=== PATIENT | female | born 1960 | race Caucasian/White ===

== ENCOUNTER 2020-02-03 16:04 | Outpatient (REF) | payer BC, SELFPAY ==
--- NOTE | 2020-02-03 16:11 | MM_ITS ---
EXAMINATION: MM SCREENING DIGITAL BREAST TOMOSYNTHESIS, BILATERAL CLINICAL INFORMATION: Screening. Asymptomatic. The lifetime risk of breast cancer based on the Tyrer-Cuzick Model is 8%. COMPARISON: Mammography: 11/28/2018, 11/02/2017, 10/25/2016 TECHNIQUE: Digital breast tomosynthesis is performed in both the craniocaudal and mediolateral oblique views along with computer-aided detection (CAD). Synthesized 2D images are generated from the tomosynthesis. Additional right CC view is provided. FINDINGS: There are scattered areas of fibroglandular density (ACR BI-RADS breast composition Category b). Breast tissue composition borders on predominantly fatty. Background fibroglandular and stromal densities are stable. No significant changes. No interval mass or architectural abnormality or abnormal calcifications. There is some digital processing artifact laterally anterior left breast on synthesized CC view. The axilla and skin contours are unremarkable. MM/MM tomosynthesis screening BI IMPRESSION: No significant changes from prior exams. ASSESSMENT: BI-RADS 2: Benign RECOMMENDATION: Routine annual mammography screening. This patient's information was entered into a reminder system with a target due date for their next mammogram.
== END 2020-02-03 16:05 | disposition home or self-care (01) ==
LOC: HO.MAMMO 16:04
PROVIDERS: PCP Internal Medicine; Visit Provider Internal Medicine
DX: Z12.31 Encounter for screening mammogram for malignant neoplasm of breast (principal)
CPT/HCPCS: 77063; 77067

== ENCOUNTER 2020-09-14 09:38 | Day surgery (SDC) | payer BC, SELFPAY ==
[2020-09-09 10:36] VITALS: BMI 34.7
--- NOTE | 2020-09-13 10:24 | P.CONAN_ITS ---
Documented by User: Anitha Edge 09/13/20 10:24 HPI - Anesthesia Eval Consult details Narrative: 60yo F for Colonoscopy [facility] Past Medical History Medical History Elevated cholesterol Surgical History Surgical History Hx of dilation and curettage Social History Social History Patient Tobacco Use Status: Never used Tobacco Use of substances other than those prescribed or required for medical reasons: No Are you DNR?: No Advance Directives: No Advance Directives Information Provided: Yes Meds Allergies Allergy/AdvReac Type Severity Reaction Status Date / Time No Known Allergies Allergy Verified 09/09/20 10:34 Home Medications Medication Instructions Recorded Confirmed Last Taken Type Lactobacillus acidophilus 10,000 mmu cells PO DAILY 09/09/20 09/09/20 Unknown History [Probiotic] ascorbic acid (vitamin C) [Vitamin 500 mg PO DAILY 09/09/20 09/09/20 Unknown History C] multivitamin 1 tab PO DAILY 09/09/20 09/09/20 Unknown History simvastatin 1 tab PO BEDTIME 09/09/20 09/09/20 Unknown History Exam Exam Date and Time: September 13, 2020 1024 Height,Weight and Vital Signs: Height 5 ft 2 in Weight 86.183 kg Assessment and Plan Assessment Anesthesia Assessment: Chart Reviewed Documented by User: Spencer Villagomez 09/14/20 10:21 [facility] Past Medical History Medical History Elevated cholesterol Surgical History Surgical History Hx of dilation and curettage Social History Social History Patient Tobacco Use Status: Never used Tobacco Use of substances other than those prescribed or required for medical reasons: No Are you DNR?: No Advance Directives: No Advance Directives Information Provided: Yes Meds Allergies Allergy/AdvReac Type Severity Reaction Status Date / Time No Known Allergies Allergy Verified 09/09/20 10:34 Home Medications Medication Instructions Recorded Confirmed Last Taken Type Lactobacillus acidophilus 10,000 mmu cells PO DAILY 09/09/20 09/09/20 Unknown History [Probiotic] ascorbic acid (vitamin C) [Vitamin 500 mg PO DAILY 09/09/20 09/09/20 Unknown History C] multivitamin 1 tab PO DAILY 09/09/20 09/09/20 Unknown History simvastatin 1 tab PO BEDTIME 09/09/20 09/09/20 Unknown History Exam Airway Mallampati Class: II TM Dist: >3cm Neck ROM: Full Loose/Missing/Broken Teeth: No Heart: rrr+[id number] Lungs: cta b/l Assessment and Plan Assessment Anesthesia Assessment: Anesthesia Plan Discussed, PAT Visit and Chart Reviewed Final Anesthetic Review NPO: Yes ASA Class: II Final Preanesthetic Review: No Changes in Pt Med Stat, Meds/Allgs Chart Reviewed, Consent Obtained/Reviewed and Anes Risks/Benef Reviewed Patient Risk: Low Procedure Risk: Low Assessment/Block/Sedation in SS: Assess/Block/Sedation-SS Anesthetic Plan Anesthetic Plan: MAC: and Agree w/ Assess. and Plan Disposition: Standard PACU
[2020-09-14 10:10] VITALS: BMI 33.8
[2020-09-14 10:22] VITALS: BP 150/88; PULSE 79; RESP 16; TEMP 36.8; O2SAT 96
[2020-09-14] MEDS: Lactated Ringers 1,000 ML 100 ML IVCONT (10:30)
--- NOTE | 2020-09-14 10:46 | MHC.SHP ---
Pre-Procedural Eval Section A Date of Service: 09/14/20 The patient is an INPATIENT: No Changes since office visit: No Cold of Flu in the past 2 weeks, No New Medical Problems, No Changes in Medication and No Patient answered all questions The History & Physical has been completed within 30 days and I have reviewed it.: Yes Section B Chief Complaint: screening Allergies: Allergies Allergy/AdvReac Type Severity Reaction Status Date / Time No Known Allergies Allergy Verified 09/09/20 10:34 Plan I have reviewed the history and physical and performed a pertinent physical examination on my patient. No changes have occurred unless specified.
--- NOTE | 2020-09-14 11:14 | P.BOP_ITS ---
Brief Operative Note Date of Service: 09/14/20 Post-op diagnosis: same (colon polyp) Surgeon: Josiah Troncoso Anesthesia: MAC Was an Loading Machine Operator Helper used for this Procedure?: No Estimated blood loss (mL): 2 Pathology: other (polyp 70) Condition: stable Disposition: PACU
[2020-09-14 11:15] VITALS: BP 150/88; PULSE 91; RESP 18; TEMP 36.2; O2SAT 98
--- NOTE | 2020-09-14 11:19 | MHC.SHP ---
Pre-Procedural Eval Section A Date of Service: 09/14/20 The patient is an INPATIENT: No The History & Physical has been completed within 30 days and I have reviewed it.: Yes Section B Chief Complaint: screening Allergies: Allergies Allergy/AdvReac Type Severity Reaction Status Date / Time No Known Allergies Allergy Verified 09/09/20 10:34 Plan I have reviewed the history and physical and performed a pertinent physical examination on my patient. No changes have occurred unless specified.
[2020-09-14 11:30] VITALS: BP 127/62; PULSE 78; RESP 18; TEMP 36.2; O2SAT 97
--- NOTE | 2020-09-14 19:00 | OP_ITS ---
SURGEON: Josiah Troncoso MD INDICATIONS: Colon cancer screening. PREOPERATIVE DIAGNOSIS: POSTOPERATIVE DIAGNOSIS: PROCEDURE PERFORMED: Colonoscopy to the terminal ileum with biopsy. ESTIMATED BLOOD LOSS: COMPLICATIONS: ANESTHESIA: ASSISTANTS: SPECIMENS: MEDICATIONS: Monitored anesthesia care. DESCRIPTION OF PROCEDURE: History and physical performed. The risks and benefits of the procedure were explained to the patient. Informed consent was obtained. The patient was placed in left lateral decubitus position. A digital rectal exam was performed and was found to be normal. The Olympus pediatric video colonoscope was introduced into the rectum and advanced to the cecum without difficulty. The cecum was identified by transillumination, palpation, and identification of ileocecal valve. Examination was performed and the scope was removed. She tolerated the procedure well and was taken to recovery area in stable condition. FINDINGS: The terminal ileum was normal. The visualized colonic mucosa was normal. The quality of the prep was good. There was a less than 5 mm sessile polyp at 70 cm. This was removed with biopsy forceps. There was some mild diverticulosis in the sigmoid. Retroflexed examination showed some small internal hemorrhoids. IMPRESSION: Colon polyp. RECOMMENDATION: Follow up the biopsy results. MD PIOTR Plata/YUKI / [id number]
== END 2020-09-14 11:55 | disposition home or self-care (01) ==
PROVIDERS: PCP Internal Medicine; Visit Provider Internal Medicine Gastroenterology
PROC: 0DJD8ZZ Inspection of Lower Intestinal Tract, Via Natural or Artificial Opening Endoscopic (ICD-10-PCS; CPT 45378; principal; 2020-09-14 11:00)
DX: Z12.11 Encounter for screening for malignant neoplasm of colon (principal); K63.5 Polyp of colon; K57.30 Diverticulosis of large intestine without perforation or abscess without bleeding; K64.8 Other hemorrhoids; E78.00 Pure hypercholesterolemia, unspecified; Z79.899 Other long term (current) drug therapy
CPT/HCPCS: 45380; 88305

== ENCOUNTER 2021-02-10 15:59 | Outpatient (REF) | payer BC, SELFPAY ==
--- NOTE | ~2021-02-10 | MM_ITS ---
EXAMINATION: MM SCREENING DIGITAL BREAST TOMOSYNTHESIS, BILATERAL CLINICAL INFORMATION: Screening. Asymptomatic. The lifetime risk of breast cancer based on the Tyrer-Cuzick Model is 47%. Additional annual screening with breast MRI may be of benefit in women with a Score of 20% or greater. COMPARISON: Mammography: February 03, 2020 and studies dating back to August 25, 2011 TECHNIQUE: Digital breast tomosynthesis is performed in both the craniocaudal and mediolateral oblique views along with computer-aided detection (CAD). Synthesized 2D images are generated from the tomosynthesis. FINDINGS: There are scattered areas of fibroglandular density (ACR BI-RADS breast composition Category b). There are no significant masses, abnormal calcifications, or other abnormalities. MM/MM tomosynthesis screening BI IMPRESSION: There are no significant changes from prior study. ASSESSMENT: BI-RADS 1: Negative RECOMMENDATION: Routine annual mammography screening. This patient's information was entered into a reminder system with a target due date for their next mammogram.
== END 2021-02-10 16:00 | disposition home or self-care (01) ==
LOC: HO.MAMMO 15:59
PROVIDERS: Visit Provider Internal Medicine
DX: Z12.31 Encounter for screening mammogram for malignant neoplasm of breast (principal)
CPT/HCPCS: 77063; 77067

== ENCOUNTER 2022-02-17 14:59 | Outpatient (REF) | payer BC, SELFPAY ==
--- NOTE | ~2022-02-17 | MM_ITS ---
EXAMINATION: MM SCREENING DIGITAL BREAST TOMOSYNTHESIS, BILATERAL CLINICAL INFORMATION: Screening. Asymptomatic. The lifetime risk of breast cancer based on the Tyrer-Cuzick Model is 9%. COMPARISON: Mammography: 02/10/2021, 02/03/2020, 11/28/2018 TECHNIQUE: Digital breast tomosynthesis is performed in both the craniocaudal and mediolateral oblique views along with computer-aided detection (CAD). Synthesized 2D images are generated from the tomosynthesis. FINDINGS: There are scattered areas of fibroglandular density (ACR BI-RADS breast composition Category b). There are no significant masses, abnormal calcifications, or other abnormalities. Parenchymal pattern is similar to prior studies. There is no developing density or architectural abnormality. The axilla and skin contours are unremarkable. No significant changes. MM/MM tomosynthesis screening BI IMPRESSION: No mammographic evidence of malignancy. ASSESSMENT: BI-RADS 1: Negative RECOMMENDATION: Routine annual mammography screening. This patient's information was entered into a reminder system with a target due date for their next mammogram.
== END 2022-02-17 15:00 | disposition home or self-care (01) ==
LOC: HO.MAMMO 14:59
PROVIDERS: Visit Provider Internal Medicine
DX: Z12.31 Encounter for screening mammogram for malignant neoplasm of breast (principal)
CPT/HCPCS: 77063; 77067

== ENCOUNTER 2023-02-21 14:09 | Outpatient (REF) | payer BC, SELFPAY ==
--- NOTE | ~2023-02-21 | MM_ITS ---
EXAMINATION: BONE DENSITOMETRY CLINICAL INDICATION: Menopause. COMPARISON: This is the patient's baseline examination. TECHNIQUE: Using a [employer] DXA System (software version: 13.1) manufactured by [employer], dual-energy x-ray absorptiometry was performed of the lumbar spine and left hip. The images are of good technical quality. Summary results are attached. FINDINGS: LEFT FEMUR, NECK: BMD 0.895 g/cm2, Z-score -0.2, T-score -1.0, normal. LEFT FEMUR, TOTAL: BMD 0.928 g/cm2, Z-score -0.2, T-score -0.6, normal. AP SPINE L1-L4: BMD 1.299 g/cm2, Z-score 1.5, T-score 1.0, normal. IDENTIFIED RISK FACTORS: Menopause. HISTORY OF FRACTURE: None listed. MEDICATIONS: Calcium, vitamin D. MM/XR DEXA axial skeleton IMPRESSION: 1. DIAGNOSIS: Normal bone density based on the lowest T-score value of -1.0 in the femoral neck applying World Health Organization criteria. 2. 10-YEAR FRACTURE RISK PREDICTION, FRAX: According to the guidelines, FRAX calculation should only be performed on patients in the osteopenia bone density category. Therefore, FRAX was not performed on this patient. 3. Treatment Recommendations: NOF guidelines recommend consideration for treatment in postmenopausal women and men age 50 and older presenting with the following: -A hip or vertebral (clinical or morphometric) fracture. -T-score less than or equal to -2.5 at the femoral neck or spine after appropriate evaluation to exclude secondary causes. -Low bone mass at the hip or spine and a 10-year fracture probability by FRAX of greater than or equal to 3% for hip fracture or greater than or equal to 20% for major osteoporotic fracture based on the [place] adapted WHO algorithm. 4. Other Recommendations: All treatment decisions require clinical judgment and consideration of individual patient factors, including patient preferences, comorbidities, previous drug use, risk factors not captured in the FRAX model (e.g. frailty, falls, vitamin D deficiency, increased bone turnover, interval significant decline in bone density) and possible under or overestimation of fracture risk by FRAX. FUTURE SCAN RECOMMENDATION: People with diagnosed cases of osteoporosis or at high risk for fracture should have regular bone mineral density tests. For patients eligible for Medicare, routine testing is allowed once every 2 years. The testing frequency can be increased to one year for patients who have rapidly progressing disease, those who are receiving or discontinuing medical therapy to restore bone mass, or have additional risk factors.
== END 2023-02-21 14:10 | disposition home or self-care (01) ==
LOC: HO.MAMMO 14:09
PROVIDERS: PCP Internal Medicine; Visit Provider Internal Medicine
DX: Z12.31 Encounter for screening mammogram for malignant neoplasm of breast (principal); Z13.820 Encounter for screening for osteoporosis; Z78.0 Asymptomatic menopausal state
CPT/HCPCS: 77063; 77067; 77080

== ENCOUNTER → 2023-02-21 14:30 | Outpatient (BNV) | payer BC, SELFPAY | PROVIDERS: PCP Internal Medicine; Visit Provider Radiology Diagnostic Radiology | DX: Z12.31 Encounter for screening mammogram for malignant neoplasm of breast (principal) | CPT/HCPCS: 77063; 77067 ==

== ENCOUNTER 2024-02-29 14:11 | Outpatient (REF) | payer BC, SELFPAY | END 2024-02-29 14:12 | disposition home or self-care (01) | LOC: HO.MAMMO 14:11 | PROVIDERS: PCP Internal Medicine; Referring Provider Obstetrics & Gynecology; Visit Provider Obstetrics & Gynecology | DX: Z12.31 Encounter for screening mammogram for malignant neoplasm of breast (principal) | CPT/HCPCS: 77063; 77067 ==

== ENCOUNTER → 2024-02-29 14:30 | Outpatient (BNV) | payer BC, SELFPAY | PROVIDERS: PCP Internal Medicine; Referring Provider Obstetrics & Gynecology; Visit Provider Internal Medicine | DX: Z12.31 Encounter for screening mammogram for malignant neoplasm of breast (principal) | CPT/HCPCS: 77063; 77067 ==

== ENCOUNTER 2025-03-03 13:55 | Outpatient (REF) | payer BC, SELFPAY ==
--- OUTSIDE RECORDS SUMMARY | 2025-03-03 17:45 | XMS_ITS | Patient Health Record ---
Author Organization [facility] Address [address] [place] [address] Care Team Providers Care Lacrosse Player Name Role Phone Ziggy (RETIRED) Damian HAIDER Primary Care Provider Unavailable Josiah Troncoso Jr Unavailable Allergies No Known Allergies Reason For Referral No Information Medications Medication SIG (Take, Route, Frequency, Duration) Notes Start Date End Date Status Vitamin C 500 MG Capsule as directed Orally Active Probiotic - Capsule as directed Orally Active MiraLax (colon prep) 8.3 ounce ((238) grams mixed with Gatorade or Crystal Light orally begin at 5:00 p.m. the day before the procedure; Duration: 1 day 09/03/2020 Active Multivitamin - Tablet 1 tablet Orally On a day/ w/iron Active Simvastatin 20 MG Tablet Oral; Duration: 90 Active Antioxidant - Capsule as directed Orally Active Immunizations Vaccine Route Administration Date Status Comme nts Influenza Unknown 11/04/2019 Administered Social History Tobacco Use: Social History Observation Description Date Details (start date - stop date) Never Smoker NA - NA Social History Drugs/Alcohol: Social Info Question Answer Notes Alcohol Screen Did you have a drink containing alcohol in the past year? 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 Problems Problem Type SNOMED Code ICD Code Onset Dates Problem Status W/U Status Risk Notes Problem Colon cancer screening (970916317) Colon cancer screening (Z12.11) Active confirmed Problem Pre-procedure evaluation check (022585564) Encounter for other preprocedural examination (Z01.818) Active confirmed Plan Of Treatment Future Test Test Name Order Date COLONOSCOPY 09/03/2020 Insurance Providers Payer Name Payer Address Payer Phone Subscriber Number Group Number Insured Name Patient Relationship to Insured Coverage Start Date Coverage End Date [facility] [employer] CLAIM[employer] [address] [place] [address] [id number] LIZZY POTTER Self - patient is the insured Medical (General) History Medical History History ICD Code Elevated cholesterol Surgical History Surgery Date(Month/Year) D&c
--- OUTSIDE RECORDS SUMMARY | 2025-03-03 17:45 | XMS_ITS | Patient Health Record ---
Author Organization [facility] Address [address] [place] [address] Care Team Providers Care Chainer Name Role Phone JAMES LOBO Primary Care Provider BARON BOUDREAUX Unavailable [phone] CAROLYNN NICKERSON Unavailable [phone] Allergies No Known Allergies Reason For Referral Reason 08/01/24 w appt New patient referral [facility] Diagnosis 1 Pain, joint, shoulde r, right (M25.511) Referral Organization [facility] Referring Provider First Name JAMES Referring Provider Last Name WE[place] Referring Provider Speciality Internal edicine Referred Organization [facility] rthopedics Referred Provider Specialty Orthopedic S urbanoery General Notes Cyndy SANTANA P Admin 10:11:42 AM > manually faxed appt request form for [facility] and also faxed some notes to [phone], Cyndy SANTANA P Admin 08/05/2024 11:00:01 AM > referral approved and faxed to [phone]>encounter closed Referral Priority Urgent Referral Appointment Date 08/29/2024 Referral Organization [facility]to Referring Provider First Name JAMES Referring Provider Last Name [place] Referring Provider Speciality Internal M edicine Referred Organization [facility] r[facility] Referred Provider Specialty Physical [facility] General Notes Cyndy SANTANA P Admin 04/2024 02:05:13 PM > per incoming document pt had appt on 08/29/24 for PT> >26v>CPT [id number]>referral approved and faxed to [phone]>encounter closed Referral Priority Routine Referral Appointment Date 08/29/2024 Medications Medication SIG (Take, Route, Frequency, Duration) Notes Start Date End Date Status Simvastatin 20 MG Tablet 1 tablet in the evening Orally Once a day Active amLODIPine Besylate 2.5 MG Tablet 1 tablet Orally Once a day Active Culturelle - Capsule as directed Orally Active Zolpidem Tartrate 5 MG Tablet 1 tab Orally at bedtime; Duration: 30 days 01/12/2025 Active Social History Tobacco Use: Social History Observation Description Date Details (start date - stop date) Never Smoker NA - NA Social History Tobacco Use: Social Info Question Answer Notes Smoking Are you a: never smoker Additional Details Category Social Info Options Details General 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2) Active confirmed Problem Localized, primary osteoarthritis of the shoulder region (971405854) Primary osteoarthritis of right shoulder (M19.011) Active confirmed Vital Signs Blood pressure diastolic 76 mm Hg 09/16/2024 Height 62 in 09/16/2024 Blood pressure systolic 126 mm Hg 09/16/2024 Weight 000 lbs 06/04/2024 patient states I'm not stopping here when we approached the scale for a weight.- 06/04/24 BMI 000 kg/m2 06/04/2024 patient states I'm not stopping here when we approached the scale for a weight.- 06/04/24 Encounters Encounter Location Date Provider Diagnosis [facility] [address] [place] [address] 06/04/2024 JAMES LOBO Acute pain of right shoulder M25.511 and Essential (primary) hypertension I10 [facility] [address] [place] [address] 03/17/2024 [facility] Essential (primary) hypertension I10 and Primary insomnia F51.01 [facility] [address], [place] [id number] 04/14/2024 [facility] COVID 079.[address] [address] 09/16/2024 [facility] Encounter for genera l adult medical examination with abnormal findings Z00.01 ; Essential (primary) hypertension I10 ; Mixed hyperlipidemia E78.2 ; Primary insomnia F51.01 and Primary osteoarthritis of right shoulder M19.[address] [address] 08/03/2024 CAROLYNN KRISHAN Acute pain of right shoulder M25.[address] [address] 10/14/2024 BARON BOUDREAUX Primary insomnia F51 .[address] [address] 09/16/[address] [address] 09/08/2024 [facility] Encounter for genera l adult medical examination without abnormal findings Z00.00 ; Mixed hyperlipidemia E78.2 and Essential (primary) hypertension I10 [address] [address] 08/13/2024 [facility] Primary insomnia F51 .[address] [address] 08/05/2024 [facility] [address] [address] 08/03/[address] [address] 06/16/2024 [facility] Primary insomnia F51 .[address] [address] 05/30/[address] [address] 05/13/[address] [address] 04/08/2024 [facility] Mixed hyperlipidemia E78.[address] [place] [address] 04/07/2024 [facility] Primary insomnia F51 .[address] [place] [address] 01/08/2025 [facility] [address] [place] [address], [place] [address] 01/07/[address] [place] [address] 07/31/2024 [facility] Pain, joint, shoulde r, right M25.[address] [place] [address] 07/31/[address] [place] [address] 04/15/[address] [place] [address] 04/14/[address] [place] [address] 04/11/2024 [facility] Gallbladder polyp K8 2.[address] [place] [address] 01/12/2025 [facility] Primary insomnia F51 .[address] [place] [address] 11/12/2024 [facility] Primary insomnia F51 .01 Assessments Encounter Date Diagnosis (ICD Code) Assessment Notes Treatment Notes Treatment Clinical Notes Section Notes 04/14/2024 COVID (ICD9-CM - 079.89) 1. COVID: We will treat with Paxlovid. Dosing concerns and possible side effects were reviewed. Patient will isolate at home until afebrile x 24 hours and clearly imrpving x 24 hours - and then if feeling improved may leave the home wearing a mask for 5 days thereafter. Patient will call in the interim if any concerns arise Patient will hold simvastatin 07/31/2024 Pain, joint, shoulder, right (ICD-10 - M25.511) 08/03/2024 Acute pain of right shoulder (ICD-10 - M25.511) She called out of frustration regarding her continued right shoulder pain. It is severe at times and prevents her from functioning, dressing, showering. She relates this to an injury that happened about 5 years ago, but the pain is much worse. She had a temporary response to a steroid injection 2 months ago, but the pain is back and worse . She is concerned that she has not heard back about a referral to Ortho. In reviewing the record, I advised her that her referral was sent to [facility] and she should be hearing back from them shortly about an appointment. They have her notes, so she can call them as well. In the meantime, she has not yet tried an NSAID, so she will start on OTC ibuprofen. I offered a prescription NSAID, but she will try this first. Acetaminophen has not helped. 09/16/2024 Essential (primary) hypertension (ICD-10 - I10) 1. Routine healthcare maintenance: Colonoscopy is due in 2030. Mammogram was done in February. Fasting blood work is up-to-date 2. Hypertension: Well-controlled on present amlodipine. No changes made today 3. Hyperlipidemia: Stable on simvastatin. Will continue same 4. Insomnia: Controlled on zolpidem. Will maintain same 5. Osteoarthritis in the right shoulder: Will observe response to PT and recent repeat injection. Plan is for an MRI through orthopedics if not better. Will await further recommendations 09/16/2024 Encounter for general adult medical examination with abnormal findings (ICD-10 - Z00.01) 1. Routine healthcare maintenance: Colonoscopy is due in 2030. Mammogram was done in February. Fasting blood work is up-to-date 2. Hypertension: Well-controlled on present amlodipine. No changes made today 3. Hyperlipidemia: Stable on simvastatin. Will continue same 4. Insomnia: Controlled on zolpidem. Will maintain same 5. Osteoarthritis in the right shoulder: Will observe response to PT and recent repeat injection. Plan is for an MRI through orthopedics if not better. Will await further recommendations 01/12/2025 Primary insomnia (ICD-10 - F51.01) 11/12/2024 Primary insomnia (ICD-10 - F51.01) 10/14/2024 Primary insomnia (ICD-10 - F51.01) 09/08/2024 Encounter for general adult medical examination without abnormal findings (ICD-10 - Z00.00) 06/04/2024 Acute pain of right shoulder (ICD-10 - M25.511) 1. Right shoulder pain: Consistent with rotator cuff tendinitis. Cortisone shot given today. Reviewed range of motion exercises. She will let me know if she is not improving with this intervention. 2. Hypertension: Mildly elevated today but in pain. Will recheck at follow-up 04/11/2024 Gallbladder polyp (ICD-10 - K82.4) 04/08/2024 Mixed hyperlipidemia (ICD-10 - E78.2) 04/07/2024 Primary insomnia (ICD-10 - F51.01) 03/17/2024 Essential (primary) hypertension (ICD-10 - I10) 1. Hypertension: Well-controlled on current amlodipine. No changes made today 2. Insomnia: Sleeping well with zolpidem. No other medical therapy has worked. She is tolerating well we will continue for now 03/17/2024 Primary insomnia (ICD-10 - F51.01) 1. Hypertension: Well-controlled on current amlodipine. No changes made today 2. Insomnia: Sleeping well with zolpidem. No other medical therapy has worked. She is tolerating well we will continue for now 09/08/2024 Mixed hyperlipidemia (ICD-10 - E78.2) 08/13/2024 Primary insomnia (ICD-10 - F51.01) 06/16/2024 Primary insomnia (ICD-10 - F51.01) 06/04/2024 Essential (primary) hypertension (ICD-10 - I10) 1. Right shoulder pain: Consistent with rotator cuff tendinitis. Cortisone shot given today. Reviewed range of motion exercises. She will let me know if she is not improving with this intervention. 2. Hypertension: Mildly elevated today but in pain. Will recheck at follow-up 09/08/2024 Essential (primary) hypertension (ICD-10 - I10) 09/16/2024 Mixed hyperlipidemia (ICD-10 - E78.2) 1. Routine healthcare maintenance: Colonoscopy is due in 2030. Mammogram was done in February. Fasting blood work is up-to-date 2. Hypertension: Well-controlled on present amlodipine. No changes made today 3. Hyperlipidemia: Stable on simvastatin. Will continue same 4. Insomnia: Controlled on zolpidem. Will maintain same 5. Osteoarthritis in the right shoulder: Will observe response to PT and recent repeat injection. Plan is for an MRI through orthopedics if not better. Will await further recommendations 09/16/2024 Primary insomnia (ICD-10 - F51.01) 1. Routine healthcare maintenance: Colonoscopy is due in 2030. Mammogram was done in February. Fasting blood work is up-to-date 2. Hypertension: Well-controlled on present amlodipine. No changes made today 3. Hyperlipidemia: Stable on simvastatin. Will continue same 4. Insomnia: Controlled on zolpidem. Will maintain same 5. Osteoarthritis in the right shoulder: Will observe response to PT and recent repeat injection. Plan is for an MRI through orthopedics if not better. Will await further recommendations 09/16/2024 Primary osteoarthritis of right shoulder (ICD-10 - M19.011) 1. Routine healthcare maintenance: Colonoscopy is due in 2030. Mammogram was done in February. Fasting blood work is up-to-date 2. Hypertension: Well-controlled on present amlodipine. No changes made today 3. Hyperlipidemia: Stable on simvastatin. Will continue same 4. Insomnia: Controlled on zolpidem. Will maintain same 5. Osteoarthritis in the right shoulder: Will observe response to PT and recent repeat injection. Plan is for an MRI through orthopedics if not better. Will await further recommendations 08/03/2024 Other Patient requested this 12-minute VV using [employer] audio/video connections from my home to hers after hours. Plan Of Treatment Future Test Test Name Order Date URINALYSIS W/REFLEX CULTURE 03/09/2023 CBC (COMPLETE BLOOD COUNT) WITH DIFF 07/2023 COMPREHENSIVE METABOLIC PANEL 03/09/2023 LIPASE 03/09/2023 SEDIMENTATION RATE 03/09/2023 Next Appt Details Provider Name:JAMES LOOB , 03/13/2025 02:15:00 PM, [address] [place], [address], Insurance Providers Payer Name Payer Address Payer Phone Subscriber Number Group Number Insured Name Patient Relationship to Insured Coverage Start Date Coverage End Date [employer] [address] [place] [address] [id number] LIZZY POTTER Self - patient is the insured Medical (General) History Medical History History ICD Code Hyperlipidemia Osteoarthritis knees Surgical History Surgery Date(Month/Year) D and C in
== END 2025-03-03 13:56 | disposition home or self-care (01) ==
LOC: HO.MAMMO 13:55
PROVIDERS: PCP Internal Medicine; Referring Provider Obstetrics & Gynecology; Visit Provider Internal Medicine
DX: Z12.31 Encounter for screening mammogram for malignant neoplasm of breast (principal)
CPT/HCPCS: 77063; 77067

== ENCOUNTER → 2025-03-03 14:30 | Outpatient (BNV) | payer BC, SELFPAY | PROVIDERS: PCP Internal Medicine; Referring Provider Obstetrics & Gynecology; Visit Provider Internal Medicine | DX: Z12.31 Encounter for screening mammogram for malignant neoplasm of breast (principal) | CPT/HCPCS: 77063; 77067 ==